=== PATIENT | male | born 1945 | race Caucasian/White ===

== ENCOUNTER 2023-09-28 15:20 | Emergency (ER) | payer OTHER, BC ==
[2023-09-28 15:52] VITALS: RESP 18; TEMP 98.8; BMI 37.7
[2023-09-28] MEDS ORDERED: ACETAMINOPHEN 500 MG TABLET (FP) ONE (16:01)
[2023-09-28] MEDS: ACETAMINOPHEN 500 MG TABLET (FP) PO ONE (16:05)
[2023-09-28 17:06] LABS: HEMATOCRIT 38.6 % (35.4-49); HEMOGLOBIN 13.5 G/dL (11.7-16.9); MCH 31.1 pg (25.7-33.7); MEAN PLT VOLUME 9.1 fl (7.5-11.1); PLATELET COUNT 184.7 10^3/uL (134-434); RBC 4.34 10^6/uL (4.00-5.60); RDW 14.8 % (11.9-15.9); WHITE BLOOD COUNT 10.3 10^3/uL (4.0-10.8)
[2023-09-28 17:14] LABS: INR 1.17 (0.83-1.09); PROTHROMBIN TIME (PATIENT) 13.6 SEC (9.7-13.0)
[2023-09-28 17:17] LABS: ACTIVATED PTT 32.9 SECONDS (25.2-36.5)
[2023-09-28 17:21] LABS: PLATELET ESTIMATE ADEQUATE
[2023-09-28 17:23] LABS: BILIRUBIN,TOTAL 0.7 mg/dl (0.2-1); CALCIUM 9.3 mg/dl (8.5-10.1); CREATININE 1.3 mg/dl (0.6-1.3); POTASSIUM 4.6 mmol/L (3.5-5.1); TOT PROT 6.7 g/dl (6.4-8.2)
[2023-09-28] MEDS: morphine CARPU-JECT 2 MG/1 ML DISP.SYRIN IVPUSH ONE (18:59)
[2023-09-28 20:09] VITALS: BP 123/68; PULSE 77
[2023-09-28] MEDS: CELECOXIB 200 MG CAPSULE PO ONE (21:15)
[2023-09-28] MEDS: CELECOXIB 100 MG CAPSULE PO ONE (21:19)
== END 2023-09-28 22:18 | disposition home or self-care (01) ==
LOC: FER 15:20
PROC: 3E033GC Introduction of Other Therapeutic Substance into Peripheral Vein, Percutaneous Approach (ICD-10-PCS; principal; 2023-09-28)
DX: M25.551 Pain in right hip (principal); S72.001A Fracture of unspecified part of neck of right femur, initial encounter for closed fracture; W01.0XXA Fall on same level from slipping, tripping and stumbling without subsequent striking against object, initial encounter; X50.1XXA Overexertion from prolonged static or awkward postures, initial encounter
CPT/HCPCS: 36415; 72192-TC; 73502-TC-RT-FY; 73700-TC-RT; 80053; 85025; 85610; 85730; 86850; 86900; 86901; 99285-25